=== PATIENT | male | born 1960 ===

== ENCOUNTER 2018-04-07 07:40 | Observation (INO) | payer OTHER ==
--- NOTE | 2018-04-07 08:00 | C.PDOC ---
History Of Present Illness 58 y/o male pt with hx of stents and HTN brought to the ER by EMS c/o persistent dizziness that started last night. Associated sx includes double vision. Pt reports it started at 10 pm last night, pt got up and fell and then went back to bed. Pt then woke up with dizziness still which prompted him to visit the ER. Pt denies chest pain, SOB, headache, nausea, vomiting, weakness, numbness, fever and chills. On arrival to ED, patient is unable to ambulate. Code stroke was called upon pt arrival. Time Seen by Provider: 04/07/18 07:42 Chief Complaint (Nursing): Dizziness/Lightheaded History Per: Patient History/Exam Limitations: no limitations Onset/Duration Of Symptoms: Days (x1) Current Symptoms Are (Timing): Still Present Activity At Onset Of Symptoms: Had Just Stood up Past Medical History Reviewed: Historical Data, Nursing Documentation, Vital Signs - Medical History PMH: HTN Family History: States: No Known Family Hx - Social History Hx Alcohol Use: No Hx Substance Use: No - Immunization History Hx Tetanus Toxoid Vaccination: No Hx Influenza Vaccination: No Hx Pneumococcal Vaccination: No Review Of Systems Constitutional: Negative for: Fever, Chills Eyes: Positive for: Other (double vision ) Cardiovascular: Negative for: Chest Pain Respiratory: Negative for: Shortness of Breath Gastrointestinal: Negative for: Nausea, Vomiting Genitourinary: Negative for: Dysuria Musculoskeletal: Negative for: Neck Pain Skin: Negative for: Rash Neurological: Positive for: Dizziness. Negative for: Weakness, Numbness, Headache Psych: Negative for: Anxiety Physical Exam - Physical Exam Appears: Well, Non-toxic, No Acute Distress Skin: Warm, Dry Head: Atraumatic, Normacephalic Eye(s): bilateral: Normal Inspection, PERRL, EOMI Neck: Normal ROM, Supple Chest: Symmetrical, No Deformity Cardiovascular: Rhythm Regular Respiratory: Normal Breath Sounds Gastrointestinal/Abdominal: Soft, No Tenderness Back: No CVA Tenderness Extremity: Normal ROM (x4), No Tenderness, No Pedal Edema, No Calf Tenderness, Capillary Refill (<2 sec), No Deformity, No Swelling Neurological/Psych: Oriented x3, Normal Speech, Normal Cognition, Normal Motor, Normal Sensation Gait: Unsteady ED Course And Treatment - Laboratory Results Result Diagrams: 04/07/18 07:57 04/07/18 07:57 NIHSS Stroke Scale 2 - Date/Time Evaluation Performed Date Performed: 04/07/18 Time Performed: 08:03 When Was NIHSS Performed: Baseline - How Severe is the Stroke Level of Consciousness: 0=Alert LOC to Questions: 0=Both comments correct LOC to commands: 0=Obeys both correctly Best Gaze: 0=Normal Visual: 0=No visual loss Facial: 0=Normal Motor Arm - Left: 0=No drift Motor Arm - Right: 0=No drift Motor Leg - Left: 0=No drift Motor Leg - Right: 0=No drift Limb Ataxia: 1=Present Upper or Lower Sensory: 0=Normal Best Language: 0=No aphasia Dysarthia: 0=Normal articulation Extinction & Inattention (Neglect): 0=Normal, no object Score: 1 rTPA Inclusion/Exclusion - Refusal of Treatment Patient Refused Treatment: No - Inclusion Criteria for Altepase Patient is 18 years or Older: No The Clinical Diagnosis of Ischemic Stroke That is Causing a Potentially Disabling Neurological Deficit: Yes Time of Onset is Well Established to be Less Than 270 Minute Before Treatment Would Begin: No Risk/Benefit Discussed With Patient/Family Member Present: No Medical Decision Making Medical Decision Making: Impression: Dizziness and unsteady gait Plans: -- chem labs -- blood work -- EKG -- CXR -- CT Head Chest XR results: Accession No. : [id number] Patient Name / ID : BRIGIDO LIM / [id number] Exam Date : 04/07/2018 08:11:58 ( Approved ) Study Comment : Sex / Age : M / 58Y Creator : patti forrester Dictator : Rebeca Tabares MD Provider Relations Specialist : Hearing Therapy Director : Rebeca Tabares MD Approver2 : Report Date : 04/07/2018 08:14:30 My Comment : Date of service: 04/07/2018 HISTORY: Code Stroke COMPARISON: No prior. FINDINGS: LUNGS: The lungs are well inflated and clear. PLEURA: No pleural effusions or pneumothorax. CARDIOVASCULAR: The heart is normal in size. No aortic atherosclerotic calcifications present. OSSEOUS STRUCTURES: Within normal limits for the patient's age. VISUALIZED UPPER ABDOMEN: Normal. OTHER FINDINGS: None. IMPRESSION: No active pulmonary disease. Head CT results: Accession No. : [id number] Patient Name / ID : BRIGIDO LIM / [id number] Exam Date : 04/07/2018 07:54:42 ( Approved ) Study Comment : Sex / Age : M / 58Y Creator : Andres Sánchez MD Dictator : Andres Sánchez MD Provider Relations Specialist : Hearing Therapy Director : Andres Sánchez MD Approver2 : Report Date : 04/07/2018 08:09:55 My Comment : Date of service: 04/07/2018 PROCEDURE: CT HEAD WITHOUT CONTRAST. HISTORY: Code Stroke COMPARISON: None available. TECHNIQUE: Axial computed tomography images were obtained through the head/brain without intravenous contrast. Radiation dose: Total exam DLP = 1114.66 mGy-cm. This CT exam was performed using one or more of the following dose reduction techniques: Automated exposure control, adjustment of the mA and/or kV according to patient size, and/or use of iterative reconstruction technique. FINDINGS: HEMORRHAGE: No intracranial hemorrhage. BRAIN: No mass effect or edema. Scattered focal lucencies in the subcortical and periventricular white matter for example in the left external capsule suggestive for mild chronic microvascular ischemic change. Left basal ganglia lacunar infarct. VENTRICLES: Unremarkable. No hydrocephalus. CALVARIUM: Unremarkable. PARANASAL SINUSES: Unremarkable as visualized. No significant inflammatory changes. MASTOID AIR CELLS: Unremarkable as visualized. No inflammatory changes. OTHER FINDINGS: Intracranial arterial calcifications. IMPRESSION: No acute intracranial hemorrhage. Chronic microvascular ischemic changes. Left basal ganglia lacunar infarct. If there is persistent concern for acute ischemic change, further evaluation with diffusion-weighted MRI may be helpful. These findings were relayed to Dr. Katsetsos at 8:03 a.m. on 04/07/2018. Neck/Head CTA results: Accession No. : [id number] Patient Name / ID : BRIGIDO LIM / [id number] Exam Date : 04/07/2018 08:20:47 ( Approved ) Study Comment : Sex / Age : M / 58Y Creator : Rebeca Tabares MD Dictator : Rebeca Tabares MD Provider Relations Specialist : Hearing Therapy Director : Rebeca Tabares MD Approver2 : Report Date : 04/07/2018 08:43:34 My Comment : Date of service: 04/07/2018 PROCEDURE: CTA HEAD AND NECK WITH CONTRAST HISTORY: dizziness COMPARISON: None available. TECHNIQUE: Initial noncontrast head CT was performed. Subsequently, CT angiogram of the head and neck were performed after the intravenous administration of 80 mL of Omnipaque 350. Contiguous 1.5mm thick images were obtained in the axial plane of the neck. 2-D coronal and sagittal MPR images were obtained. Imaging postprocessing was performed with 3-D images also obtained. A delayed contrast head CT was also obtained. This CT exam was performed using one or more of the following dose reduction techniques: Automated exposure control, adjustment of the mA and/or kV according to patient size, and/or use of iterative reconstruction technique. Contrast dose: 100 mL Visipaque 320 Radiation dose: Total exam DLP = 668.31 mGy-cm. FINDINGS: HEAD: Right: The intracranial internal carotid artery, and anterior and middle cerebral arteries are widely patent. Left: The intracranial internal carotid artery, and anterior and middle cerebral arteries are widely patent. Posterior circulation: The visualized intracranial vertebral arteries, basilar artery and posterior cerebral arteries are widely patent. There is origin of bilateral posterior cerebral arteries, an anatomic variant. There is no endoluminal filling defect to suggest thrombus. There is no intracranial saccular aneurysm. NECK: There is a three vessel aortic arch. There is no stenosis at the origins of the great vessels at the level of the aortic arch. No atherosclerotic calcification or mural plaque present. Right Carotid: On the right, the common carotid, internal carotid and external carotid arteries are widely patent. There is no hemodynamically significant stenosis in the internal carotid artery by NASCET criteria. Left Carotid: On the left, the common carotid, internal carotid and external carotid arteries are widely patent. There is no hemodynamically significant stenosis in the internal carotid artery by NASCET criteria. The vertebral arteries are widely patent. The left vertebral artery is hypoplastic, an anatomic variant. The visualized soft tissues of the neck are normal. The visualized brain and cervical spine are within normal limits. The lung apices are clear. IMPRESSION: 1. No evidence of endoluminal thrombus,occlusion or definite significant stenosis in the intracranial arteries. 2. No evidence of hemodynamically significant stenosis in the internal carotid arteries. 3. Patent bilateral vertebral arteries. 9:41AM EKG shows sinus bradycardia at 57bpm with LVH. Labs grossly normal. Symptoms resolved and now ambulating around the ED. Due to risk factors and severe presentation, will observe with MRI and neuro eval for tia vs posterior fossa cva. Scheduled for heart monitor today for palpitations. 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 Dumont Disposition - Disposition Disposition: HOSPITALIZED Disposition Time: 09:42 Condition: FAIR - Clinical Impression Clinical Impression: Dizziness, TIA (transient ischemic attack) - Scribe Statement The provider has reviewed the documentation as recorded by the Johnny [place] Do Provider Attestation: All medical record entries made by the Annamarieibrossi were at my direction and personally dictated by me. I have reviewed the chart and agree that the record accurately reflects my personal performance of the history, physical exam, medical decision making, and the department course for this patient. I have also personally directed, reviewed, and agree with the discharge instructions and disposition.
[2018-04-07 08:01] VITALS: BMI 26.6
[2018-04-07 08:03] LABS: BASO # 0.1 K/uL (0.0-0.2); BASO % 0.9 % (0.0-2.0); EOS # 0.2 K/uL (0.0-0.7); HEMOGLOBIN 15.6 g/dL (12.0-18.0); LYMPH # 2.6 K/uL (1.0-4.3); LYMPH % 32.4 % (20.0-40.0); MEAN CELL VOLUME 90.8 fL (80.0-94.0); MEAN CORPUSCULAR HEMOGLOBIN 31.4 pg (27.0-31.0); MEAN CORPUSCULAR HGB CONC 34.5 g/dL (33.0-37.0); MEAN PLATELET VOLUME 8.5 fL (7.2-11.7); MONO # 0.5 K/uL (0.0-0.8); MONO % 6.4 % (0.0-10.0); NEUT # 4.7 K/uL (1.8-7.0); NEUT % 58.3 % (50.0-75.0); RBC 4.96 Mil/uL (4.40-5.90); RED CELL DISTRIBUTION WIDTH 13.3 % (11.5-14.5); WHITE BLOOD COUNT 8.1 K/uL (4.8-10.8)
[2018-04-07 08:11] LABS: PROTHROMBIN TIME 11.3 SECONDS (9.7-12.2)
--- NOTE | 2018-04-07 08:13 | CT ---
Date of service: 04/07/2018 PROCEDURE: CT HEAD WITHOUT CONTRAST. HISTORY: Code Stroke COMPARISON: None available. TECHNIQUE: Axial computed tomography images were obtained through the head/brain without intravenous contrast. Radiation dose: Total exam DLP = 1114.66 mGy-cm. This CT exam was performed using one or more of the following dose reduction techniques: Automated exposure control, adjustment of the mA and/or kV according to patient size, and/or use of iterative reconstruction technique. FINDINGS: HEMORRHAGE: No intracranial hemorrhage. BRAIN: No mass effect or edema. Scattered focal lucencies in the subcortical and periventricular white matter for example in the left external capsule suggestive for mild chronic microvascular ischemic change. Left basal ganglia lacunar infarct. VENTRICLES: Unremarkable. No hydrocephalus. CALVARIUM: Unremarkable. PARANASAL SINUSES: Unremarkable as visualized. No significant inflammatory changes. MASTOID AIR CELLS: Unremarkable as visualized. No inflammatory changes. OTHER FINDINGS: Intracranial arterial calcifications. IMPRESSION: No acute intracranial hemorrhage. Chronic microvascular ischemic changes. Left basal ganglia lacunar infarct. If there is persistent concern for acute ischemic change, further evaluation with diffusion-weighted MRI may be helpful. These findings were relayed to Dr. Macedo at 8:03 a.m. on 04/07/2018.
[2018-04-07 08:16] LABS: ALB/GLOB RATIO 1.7 (1.0-2.1); ALBUMIN 4.5 g/dL (3.5-5.0); ALT/SGPT 69 U/L (21-72); AST/SGOT 37 U/L (17-59); BLOOD UREA NITROGEN 18 mg/dL (9-20); CALCIUM 9.4 mg/dl (8.6-10.4); GFR NON-AFRICAN AMERICAN > 60; HDL CHOLESTEROL 40 mg/dL (30-70)
[2018-04-07] MEDS ORDERED: Iodixanol 320 MG/ML 200 ML BOTTLE IV ONE (08:16)
[2018-04-07 08:28] LABS: LDL CHOLESTEROL 108 mg/dL (0-129)
--- NOTE | 2018-04-07 08:33 | RAD ---
Date of service: 04/07/2018 HISTORY: Code Stroke COMPARISON: No prior. FINDINGS: LUNGS: The lungs are well inflated and clear. PLEURA: No pleural effusions or pneumothorax. CARDIOVASCULAR: The heart is normal in size. No aortic atherosclerotic calcifications present. OSSEOUS STRUCTURES: Within normal limits for the patient's age. VISUALIZED UPPER ABDOMEN: Normal. OTHER FINDINGS: None. IMPRESSION: No active pulmonary disease.
--- NOTE | 2018-04-07 08:47 | CT ---
Date of service: 04/07/2018 PROCEDURE: CTA HEAD AND NECK WITH CONTRAST HISTORY: dizziness COMPARISON: None available. TECHNIQUE: Initial noncontrast head CT was performed. Subsequently, CT angiogram of the head and neck were performed after the intravenous administration of 80 mL of Omnipaque 350. Contiguous 1.5mm thick images were obtained in the axial plane of the neck. 2-D coronal and sagittal MPR images were obtained. Imaging postprocessing was performed with 3-D images also obtained. A delayed contrast head CT was also obtained. This CT exam was performed using one or more of the following dose reduction techniques: Automated exposure control, adjustment of the mA and/or kV according to patient size, and/or use of iterative reconstruction technique. Contrast dose: 100 mL Visipaque 320 Radiation dose: Total exam DLP = 668.31 mGy-cm. FINDINGS: HEAD: Right: The intracranial internal carotid artery, and anterior and middle cerebral arteries are widely patent. Left: The intracranial internal carotid artery, and anterior and middle cerebral arteries are widely patent. Posterior circulation: The visualized intracranial vertebral arteries, basilar artery and posterior cerebral arteries are widely patent. There is origin of bilateral posterior cerebral arteries, an anatomic variant. There is no endoluminal filling defect to suggest thrombus. There is no intracranial saccular aneurysm. NECK: There is a three vessel aortic arch. There is no stenosis at the origins of the great vessels at the level of the aortic arch. No atherosclerotic calcification or mural plaque present. Right Carotid: On the right, the common carotid, internal carotid and external carotid arteries are widely patent. There is no hemodynamically significant stenosis in the internal carotid artery by NASCET criteria. Left Carotid: On the left, the common carotid, internal carotid and external carotid arteries are widely patent. There is no hemodynamically significant stenosis in the internal carotid artery by NASCET criteria. The vertebral arteries are widely patent. The left vertebral artery is hypoplastic, an anatomic variant. The visualized soft tissues of the neck are normal. The visualized brain and cervical spine are within normal limits. The lung apices are clear. IMPRESSION: 1. No evidence of endoluminal thrombus,occlusion or definite significant stenosis in the intracranial arteries. 2. No evidence of hemodynamically significant stenosis in the internal carotid arteries. 3. Patent bilateral vertebral arteries.
--- NOTE | 2018-04-07 11:36 | CP.PCM.CON ---
History of Present Illness - History of Present Illness History of Present Illness: Vascular Neurology Consultation Note (Stroke Team): Consult requested by Vi Romero Mr. Norman is a 58-year-old man with a past medical history of CAD s/p 4 stents, managed by Dr. Dumont, who developed dizziness, light-headedness, diplopia and when he went to stand up last night he fell back. For the past month he has been having palpitations, some chest pain and a sensation up the back of his neck. He presented to the ED this morning with continued symptoms. CT scan of the head did not show any acute findings, CTA of the head/neck did not show any LVO. He was outside the time window for IV tPA. MRI of the brain is consistent with a right thalamic lacunar acute ischemic stroke. His symptoms have essentially resolved. Review of Systems - Constitutional Constitutional: As Per HPI - EENT Eyes: absent: As Per HPI, Blind Spots, Blurred Vision, Change in Vision, Decreased Night Vision, Diplopia, Discharge, Dry Eye, Exophthalmos, Floaters, Irritation, Itchy Eyes, Loss of Peripheral Vision, Pain, Photophobia, Requires Corrective Lenses, Sees Flashes, Spots in Vision, Tunnel Vision, Other Visual Disturbances, Loss of Vision, Other Ears: absent: As Per HPI, Decreased Hearing, Ear Discharge, Ear Pain, Tinnitus, Abnormal Hearing, Disequilibrium, Dizziness, Other Nose/Mouth/Throat: absent: As Per HPI, Epistaxis, Nasal Congestion, Nasal Discharge, Nasal Obstruction, Nasal Trauma, Nose Pain, Post Nasal Drip, Sinus Pain, Sinus Pressure, Bleeding Gums, Change in Voice, Dental Pain, Dry Mouth, Dysphagia, Halitosis, Hoarsness, Lip Swelling, Mouth Lesions, Mouth Pain, Odynophagia, Sore Throat, Throat Swelling, Tongue Swelling, Facial Pain, Neck Pain, Neck Mass, Other - Cardiovascular Cardiovascular: absent: As Per HPI, Acrocyanosis, Chest Pain, Chest Pain at Rest, Chest Pain with Activity, Claudication, Diaphoresis, Dyspnea, Dyspnea on Exertion, Edema, Irregular Heart Rhythm, Pain Radiating to Arm/Neck/Jaw, Leg Edema, Leg Ulcers, Lightheadedness, Orthopnea, Palpitations, Paroxysmal Nocturnal Dyspnea, Pedal Edema, Radiating Pain, Rapid Heart Rate, Slow Heart Rate, Syncope, Other - Respiratory Respiratory: absent: As Per HPI, Cough, Dyspnea, Hemoptysis, Dyspnea on Exertion, Wheezing, Snoring, Stridor, Pain on Inspiration, Chest Congestion, Excessive Mucous Production, Change in Mucous Color, Pain with Coughing, Other - Gastrointestinal Gastrointestinal: absent: As Per HPI, Abdominal Pain, Belching, Bloating, Change in Bowel Habits, Change in Stool Character, Coffee Ground Emesis, Constipation, Cramping, Diarrhea, Dyspepsia, Dysphagia, Early Satiety, Excessive Flatus, Fecal Incontinence, Heartburn, Hematemesis, Hematochezia, Loose Stools, Melena, Nausea, Odynophagia, Temesmus, Vomiting, Other - Genitourinary Genitourinary: absent: As Per HPI, Change in Urinary Stream, Difficulty Urinating, Dysuria, Flank Pain, Hematuria, Pyuria, Nocturia, Urinary Incontinence, Urinary Frequency, Urinary Hesitance, Urinary Urgency, Voiding Freq/Small Amts, Freq UTI, Hx Renal/Bladder Calculi, Hx /Renal Surgery, Bladder Distension, Other - Musculoskeletal Musculoskeletal: absent: As Per HPI, Abnormal Gait, Arthralgias, Atrophy, Back Pain, Deformity, Joint Swelling, Limited Range of Motion, Loss of Height, Muscle Cramps, Muscle Weakness, Myalgias, Neck Pain, Numbness, Radiating Pain into Limb, Stiffness, Tingling, Other - Integumentary Integumentary: absent: As Per HPI, Acne, Alopecia, Bleeding Lesions, Change in Hair, Change in Nails, Change in Pigmentation, Changing Lesions, Dry Skin, Erythema, Furuncle, Hirsutism, Lesions, New Lesions, Non-Healing Lesions, Photosensitivity, Pruritus, Rash, Skin Pain, Skin Ulcer, Sores, Striae, Swelling, Unusual Bruising, Wounds, Jaundice, Other - Neurological Neurological: As Per HPI - Psychiatric Psychiatric: absent: As Per HPI, Abnormal Sleep Pattern, Anhedonia, Anxiety, Auditory Hallucinations, Behavioral Changes, Change in Appetite, Change in Libido, Confusion, Depression, Difficulty Concentrating, Hallucinations, Homicidal Ideation, Hopelessness, Irritability, Memory Loss, Mood Swings, Panic Attacks, Paranoia, Suicidal Ideation, Visual Hallucinations, Tactile Hallucinations, Other - Endocrine Endocrine: absent: As Per HPI, Change in Body Appearance, Change in Libido, Cold Intolorance, Deepening of Voice, Excessive Sweating, Fatigue, Flushing, Heat Intolorance, Increase in Ring/Shoe/Hat Size, Palpitations, Polydipsia, Polyphagia, Polyuria, Other - Hematologic/Lymphatic Hematologic: absent: As Per HPI, Easy Bleeding, Easy Bruising, Lymphadenopathy, Other Past Patient History - Infectious Disease Hx of Infectious Diseases: None - Past Social History Smoking Status: Never Smoked - CARDIAC Hx Hypertension: Yes - PSYCHIATRIC Hx Substance Use: No Meds Allergies/Adverse Reactions: Allergies Allergy/AdvReac Type Severity Reaction Status Date / Time No Known Allergies Allergy Verified 04/07/18 07:47 Physical Exam - Constitutional Appears: Well - Head Exam Head Exam: ATRAUMATIC, NORMAL INSPECTION, NORMOCEPHALIC - Eye Exam Eye Exam: EOMI, Normal appearance, PERRL Pupil Exam: NORMAL ACCOMODATION, PERRL - ENT Exam ENT Exam: Mucous Membranes Moist, Normal Exam - Neck Exam Neck exam: Positive for: Normal Inspection - Respiratory Exam Respiratory Exam: Clear to Auscultation Bilateral, NORMAL BREATHING PATTERN - Cardiovascular Exam Cardiovascular Exam: REGULAR RHYTHM, +S1, +S2 - GI/Abdominal Exam GI & Abdominal Exam: Normal Bowel Sounds, Soft. absent: Tenderness - Extremities Exam Extremities exam: Positive for: normal inspection - Back Exam Back exam: NORMAL INSPECTION - Neurological Exam Neurological exam: Alert, CN II-XII Intact, Normal Gait, Oriented x3, Reflexes Normal Additional comments: NIHSS= 0 - Psychiatric Exam Psychiatric exam: Normal Affect, Normal Mood - Skin Skin Exam: Dry, Intact, Normal Color, Warm Results - Vital Signs Recent Vital Signs: Last Vital Signs Temp Pulse 53 L 04/07/18 09:55 Resp 17 04/07/18 09:55 BP 120/75 04/07/18 09:55 Pulse Ox 97 04/07/18 09:55 - Labs Result Diagrams: 04/07/18 07:57 04/07/18 07:57 Labs: Laboratory Results - last 24 hr 04/07/18 04/07/18 04/07/18 07:49 07:57 07:57 WBC 8.1 RBC 4.96 Hgb 15.6 Hct 45.1 MCV 90.8 MCH 31.4 H MCHC 34.5 RDW 13.3 Plt Count 228 MPV 8.5 Neut % (Auto) 58.3 Lymph % (Auto) 32.4 [place] % (Auto) 6.4 Eos % (Auto) 2.0 Baso % (Auto) 0.9 Neut # (Auto) 4.7 Lymph # (Auto) 2.6 [place] # (Auto) 0.5 Eos # (Auto) 0.2 Baso # (Auto) 0.1 PT 11.3 INR 1.0 APTT 30 Sodium Potassium Chloride Carbon Dioxide Anion Gap BUN Creatinine Est GFR ( Amer) Est GFR (Non-Af Amer) POC Glucose (mg/dL) 130 H Random Glucose Hemoglobin A1c Calcium Total Bilirubin AST ALT Alkaline Phosphatase Troponin I Total Protein Albumin Globulin Albumin/Globulin Ratio Triglycerides Cholesterol LDL Cholesterol Direct HDL Cholesterol Blood Type Antibody Screen 04/07/18 04/07/18 04/07/18 07:57 07:57 07:57 WBC RBC Hgb Hct MCV MCH MCHC RDW Plt Count MPV Neut % (Auto) Lymph % (Auto) [place] % (Auto) Eos % (Auto) Baso % (Auto) Neut # (Auto) Lymph # (Auto) [place] # (Auto) Eos # (Auto) Baso # (Auto) PT INR APTT Sodium 138 Potassium 4.0 Chloride 100 Carbon Dioxide 30 Anion Gap 12 BUN 18 Creatinine 1.0 Est GFR ( Amer) > 60 Est GFR (Non-Af Amer) > 60 POC Glucose (mg/dL) Random Glucose 126 H Hemoglobin A1c 5.9 Calcium 9.4 Total Bilirubin 0.9 AST 37 ALT 69 Alkaline Phosphatase 55 Troponin I 0.0220 Total Protein 7.2 Albumin 4.5 Globulin 2.7 Albumin/Globulin Ratio 1.7 Triglycerides 125 Cholesterol 165 LDL Cholesterol Direct 108 HDL Cholesterol 40 Blood Type B POSITIVE Antibody Screen Negative Assessment & Plan (1) Ischemic stroke Assessment and Plan: This may be due to small vessel diseaes, however, the patient was already on aspirin and had the new strokes. History of palpitations is concerning for possible paroxysmal atrial fibrillation and cardio-embolic stroke. Follow-up by Dr. Ybarra. I recommend the followin. Telemetry 2. Aspirin 81 mg daily and Plavix 75 mg daily (continue for 21 days, then continue only plavix indefinitely); unless, atrial fibrillation is discovered during telemetry or cardiac monitoring, at which point, Eliquis is recommended. 3. Echocardiogram 4. Fluids with NS at 100 mL/hr 5. Permissive HTN for the next 24 hours 6. PT/OT eval and treatment. 7. Case management consult 8. Check lipid panel, HbA1c, B12, folate, TSH, vitamin D, homocysteine level 9. Primary team to manage risk factors 10. Lipitor 40 mg daily Thank you for this consultation. Status: Acute
--- NOTE | 2018-04-07 11:41 | MRI ---
Date of service: 04/07/2018 PROCEDURE: MRI BRAIN WITHOUT CONTRAST HISTORY: Dizziness COMPARISON: Noncontrast head CT from 04/07/2018. TECHNIQUE: Multiplanar, multisequence MR images of the brain were obtained without intravenous contrast enhancement. FINDINGS: HEMORRHAGE: None DWI: There is a small area of restricted diffusion in the right periaqueductal li matter. BRAIN PARENCHYMA: There is T2/FLAIR hyperintense signal corresponding to the area of restricted diffusion in the right periaqueductal li matter. There are mild chronic microangiopathic changes. There is no mass, mass effect or abnormal extra-axial fluid collection. There is no territorial infarction. The midline sagittal structures are normal. VENTRICLES: There is mild age-related global parenchymal volume loss and proportionate enlargement of the ventricles and cortical sulci. CRANIUM: There is normal bone marrow signal pattern. ORBITS: Grossly unremarkable. PARANASAL SINUSES/MASTOIDS: Predominantly clear. VASCULAR SYSTEM: There are normal signal voids in the larger intracranial arteries. OTHER FINDINGS: None. IMPRESSION: Suspect small late acute/subacute infarction in the right periaqueductal li matter. Mild chronic microangiopathic changes and mild age-related global parenchymal volume loss. Important findings were discussed with Dr. Tate Garland on 04/07/2018 at 11:35 a.m.
[2018-04-07] MEDS ORDERED: Enoxaparin 40 mg Syringe SC SCH (12:15)
--- NOTE | 2018-04-07 12:31 | CP.PCM.HP ---
Past Patient History - Infectious Disease Hx of Infectious Diseases: None - Past Social History Smoking Status: Never Smoked - CARDIAC Hx Hypertension: Yes - PSYCHIATRIC Hx Substance Use: No Meds Home Medications: Home Medication List Medication Instructions Recorded Confirmed Type RX: Clopidogrel [Plavix] 75 mg PO STAT #30 tab 04/10/18 Rx RX: Losartan [Cozaar] 25 mg PO DAILY #30 tab 04/10/18 Rx Allergies/Adverse Reactions: Allergies Allergy/AdvReac Type Severity Reaction Status Date / Time No Known Allergies Allergy Verified 04/07/18 07:47 Physical Exam - Constitutional Appears: Well - Head Exam Head Exam: ATRAUMATIC, NORMAL INSPECTION, NORMOCEPHALIC - Eye Exam Eye Exam: EOMI, Normal appearance, PERRL Pupil Exam: NORMAL ACCOMODATION, PERRL - ENT Exam ENT Exam: Mucous Membranes Moist, Normal Exam - Neck Exam Neck exam: Positive for: Normal Inspection - Respiratory Exam Respiratory Exam: Decreased Breath Sounds - Cardiovascular Exam Cardiovascular Exam: +S1, +S2 - GI/Abdominal Exam GI & Abdominal Exam: Diminished Bowel Sounds, Soft - Rectal Exam Rectal Exam: Deferred Results - Vital Signs Recent Vital Signs: Last Vital Signs Temp Pulse 53 L 04/07/18 09:55 Resp 17 04/07/18 09:55 BP 120/75 04/07/18 09:55 Pulse Ox 97 04/07/18 09:55 - Labs Result Diagrams: 04/07/18 07:57 04/07/18 07:57 Labs: Laboratory Results - last 24 hr 04/07/18 04/07/18 04/07/18 07:49 07:57 07:57 WBC 8.1 RBC 4.96 Hgb 15.6 Hct 45.1 MCV 90.8 MCH 31.4 H MCHC 34.5 RDW 13.3 Plt Count 228 MPV 8.5 Neut % (Auto) 58.3 Lymph % (Auto) 32.4 Lynn % (Auto) 6.4 Eos % (Auto) 2.0 Baso % (Auto) 0.9 Neut # (Auto) 4.7 Lymph # (Auto) 2.6 [place] # (Auto) 0.5 Eos # (Auto) 0.2 Baso # (Auto) 0.1 PT 11.3 INR 1.0 APTT 30 Sodium Potassium Chloride Carbon Dioxide Anion Gap BUN Creatinine Est GFR ( Amer) Est GFR (Non-Af Amer) POC Glucose (mg/dL) 130 H Random Glucose Hemoglobin A1c Calcium Total Bilirubin AST ALT Alkaline Phosphatase Troponin I Total Protein Albumin Globulin Albumin/Globulin Ratio Triglycerides Cholesterol LDL Cholesterol Direct HDL Cholesterol Blood Type Antibody Screen 04/07/18 04/07/18 04/07/18 07:57 07:57 07:57 WBC RBC Hgb Hct MCV MCH MCHC RDW Plt Count MPV Neut % (Auto) Lymph % (Auto) [place] % (Auto) Eos % (Auto) Baso % (Auto) Neut # (Auto) Lymph # (Auto) [place] # (Auto) Eos # (Auto) Baso # (Auto) PT INR APTT Sodium 138 Potassium 4.0 Chloride 100 Carbon Dioxide 30 Anion Gap 12 BUN 18 Creatinine 1.0 Est GFR ( Amer) > 60 Est GFR (Non-Af Amer) > 60 POC Glucose (mg/dL) Random Glucose 126 H Hemoglobin A1c 5.9 Calcium 9.4 Total Bilirubin 0.9 AST 37 ALT 69 Alkaline Phosphatase 55 Troponin I 0.0220 Total Protein 7.2 Albumin 4.5 Globulin 2.7 Albumin/Globulin Ratio 1.7 Triglycerides 125 Cholesterol 165 LDL Cholesterol Direct 108 HDL Cholesterol 40 Blood Type B POSITIVE Antibody Screen Negative
--- NOTE | 2018-04-07 15:43 | PCM.RRT ---
MEDICAL PSYCHOTHERAPIST Nurses Assessment - Situation Date: 04/07/18 Time MEDICAL PSYCHOTHERAPIST was called: 15:28 MEDICAL PSYCHOTHERAPIST Responder Arrival Time:: 15:30 MEDICAL PSYCHOTHERAPIST Location:: 6T Med/Surg MEDICAL PSYCHOTHERAPIST Called By: Physician I.Reason for MEDICAL PSYCHOTHERAPIST - A) Acute Change in Patient: Subjective: Rapid was called at 1528 after patient complained of headache. Physician was concerned for hemorrhagic conversion since patient was a code stroke. Patient states he has been experiencing a headache since early this morning. He states he does not have any blurry vision at this time. - Neurological Status (Select all that apply): Alert, Responsive, Oriented, Verbal, Follows Commands - Respiratory Oxygen Delivery Method: Room Air - Constitutional Appears: Well, No Acute Distress - Head Head Exam: ATRAUMATIC, NORMOCEPHALIC - Eyes Eye Exam: EOMI, PERRL - Respiratory Exam Respiratory Exam: Clear to Ausculation Bilateral, NORMAL BREATHING PATTERN - Cardiovascular Exam Cardiovascular Exam: REGULAR RHYTHM, +S1, +S2. absent: Gallop, Rubs, Murmur - GI/Abdominal Exam GI & Abdominal Exam: Soft, Normal Bowel Sounds. absent: Tenderness - Neurological Exam Neurological Exam: Alert, Awake, CN II-XII Intact, Oriented x3 Additional exam: Strength 5/5 in upper and lower extremities Sensation equal in upper and lower extremities. No pronator drift. Good finger to nose - Extremities Exam Extremities Exam: absent: Calf Tenderness, Pedal Edema Plan - Assessment of Findings&Treatment Plan Vitals: Temp 97.5 BP 127/81 HR 62 O2 sat 97% on RA CT head without contrast: Asymmetric low density lesion in the right medial thalamus consistent with known subacute infarction. No evidence for hemorrhagic conversion. Case discussed with Dr. Kyung Rayo, PGY1
--- NOTE | 2018-04-07 16:26 | CT ---
Date of service: 04/07/2018 PROCEDURE: CT HEAD WITHOUT CONTRAST. HISTORY: recent cva r/o conversion COMPARISON: Noncontrast head CT MRI brain without contrast from 04/07/2018 TECHNIQUE: Axial computed tomography images were obtained through the head/brain without intravenous contrast. Radiation dose: Total exam DLP = 1129.83 mGy-cm. This CT exam was performed using one or more of the following dose reduction techniques: Automated exposure control, adjustment of the mA and/or kV according to patient size, and/or use of iterative reconstruction technique. FINDINGS: HEMORRHAGE: No intracranial hemorrhage. BRAIN: There is asymmetric low attenuation in the right medial thalamus. There is no mass, mass effect or abnormal extra-axial fluid collection. There is no territorial infarction. The midline sagittal structures are normal. VENTRICLES: The ventricles are normal in size, shape and configuration. CALVARIUM: There is no calvarial fracture or extracranial soft tissue swelling. PARANASAL SINUSES: Predominantly clear. MASTOID AIR CELLS: Predominantly clear. There cerumen in the left external auditory canal. OTHER FINDINGS: None. IMPRESSION: Asymmetric low density lesion in the right medial thalamus consistent with known subacute infarction. No evidence for hemorrhagic conversion.
[2018-04-07] MEDS: Omega-3-Acid Ethyl Esters 1 GM Cap PO SCH (17:44)
--- NOTE | 2018-04-07 22:37 | CARD ---
APPROVED REPORT Date of service: 04/07/2018 EXAM: Two-dimensional and M-mode echocardiogram with Doppler and color Doppler with bubble. Other Information Quality : GoodRhythm : INDICATION CVA/TIA Dizziness and Vertigo DOUBLE VISION RISK FACTORS Hypertension 2D DIMENSIONS IVSd1.0 (0.7-1.1cm)LVDd4.7 (3.9-5.9cm) PWd0.9 (0.7-1.1cm)LA Smjlai18 (18-58mL) LVDs4.1 (2.5-4.0cm)FS (%) 11.9 % LVEF (%)50.0 (>50%)LVEF (Nelson's)53.24 % IVC0.00 cm M-Mode DIMENSIONS Left Atrium (MM)4.17 (2.5-4.0cm)IVSd1.51 (0.7-1.1cm) Aortic Root3.04 (2.2-3.7cm)LVDd5.91 (4.0-5.6cm) Aortic Cusp Exc.2.15 (1.5-2.0cm)PWd0.78 (0.7-1.1cm) FS (%) 21 %LVDs4.68 (2.0-3.8cm) TAPSE18.55 cmLVEF (%)48 (>50%) Mitral Valve MV E Qhawifxn60.2cm/sMV A Binhreli93.3cm/sE/A ratio1.1 TDI Lateral E' Peak V8.03cm/sMedial E' Peak V6.03cm/sE/Lateral E'9.0 E/Medial E'12.0 Tricuspid Valve TR Peak Xprppwrc089kb/sTR Peak Gr.[id number] LEFT VENTRICLE The left ventricle is normal size. There is normal left ventricular wall thickness. Left ventricle systolic function is normal. The Ejection Fraction is 50-55%. There is normal LV segmental wall motion. The left ventricular diastolic function is normal. RIGHT VENTRICLE The right ventricle is normal size. There is normal right ventricular wall thickness. The right ventricular systolic function is normal. ATRIA The left atrium size is normal. The right atrium size is normal. The interatrial septum is intact with no evidence for an atrial septal defect. AORTIC VALVE The aortic valve is normal in structure. No aortic regurgitation is present. There is no aortic valvular stenosis. There is no aortic valvular vegetation. MITRAL VALVE The mitral valve is normal in structure. There is no evidence of mitral valve prolapse. There is no mitral valve stenosis. Mitral regurgitation is mild. TRICUSPID VALVE The tricuspid valve is normal in structure. There is mild tricuspid regurgitation. Right ventricular systolic pressure is estimated at less than 30 mmHg. There is no pulmonary hypertension. PULMONIC VALVE The pulmonic valve is not well visualized. There is no pulmonic valvular regurgitation. GREAT VESSELS The aortic root is normal in size. PERICARDIAL EFFUSION There is no significant pericardial effusion. <Conclusion> Left ventricle systolic function is normal. The Ejection Fraction is 50-55%. No aortic regurgitation is present. Mitral regurgitation is mild. There is mild tricuspid regurgitation. There is no pulmonary hypertension. There is no pulmonic valvular regurgitation.
--- NOTE | 2018-04-08 01:44 | CON ---
DATE: 04/07/2018 CONSULTATION SERVICE: Clinical cardiac electrophysiology. REASON FOR CONSULTATION: Stroke, palpitations. PHYSICIAN REQUESTING CONSULTATION: Bert Aguayo MD PHYSICIAN PERFORMING CONSULTATION: Volodymyr Natarajan MD HISTORY OF PRESENT ILLNESS: Mr. Blaise Norman is a very pleasant 58-year-old male with a history of coronary artery disease and PCI and four stents in the past, normal LV ejection fraction (no history of diabetes or hypertension per se) who presents to [facility] with acute onset of diplopia and gait instability. He was seen in the emergency room and subsequently hospitalized. He was diagnosed with a thalamic stroke, based on his symptoms, there was a suggestion of a larger posterior circulation involvement that had unfortunately minimized to a smaller thalamic area. Currently, the patient says he feels relatively well, but he does have a headache today, which is new from earlier. His symptoms have been improving. He is a male carrier and is very active typically. He denies any previous lightheadedness, dizziness, or syncope. Historically, he does admit to palpitations that occur every few nights. Typically, he says when he is resting in the evening, he will be sitting there and he "feels forceful hear beats." He has not been dizzy with these and has certainly not had any syncope. Since he has been in the hospital, he has not had any of these sensations. On EKG, he has demonstrated normal sinus rhythm with normal atrioventricular conduction. On telemetry, he has been in sinus rhythm entirely, he has had rare PVCs. Again, the patient has not had symptoms while has been in the hospital. There has been no atrial or ventricular arrhythmia per se. He has thus far had an echocardiogram and bubble study which had been unrevealing. He is currently undergoing head CT because of his increasing headache. REVIEW OF SYSTEMS: A comprehensive 10-point review of systems was performed and notable for what was seen above. FAMILY HISTORY: Unremarkable. SOCIAL HISTORY: Unremarkable. PHYSICAL EXAMINATION: VITAL SIGNS: The patient's blood pressure is 120s/80s, heart rate in the 50s, and respiratory rate of 13. GENERAL: The patient is alert, oriented, conversant appropriate. NECK: Supple. PULMONARY: Lungs are clear. CARDIOVASCULAR: Bradycardic, S1 and S2. GASTROINTESTINAL: Abdomen is soft. EXTREMITIES: No edema. SKIN: No rashes. PSYCHIATRIC: Normal affect. His family members are in the room. LABORATORY DATA: Lab hinojosa, the patient's CBC is largely unrevealing with a hemoglobin of 15.6 and platelet count of 228. INR is 1. His creatinine is 1. ASSESSMENT AND PLAN: Mr. Blaise Norman is presenting with an MRI finding of a right thalamic lacunar stroke. After my discussion with Dr. Aguayo from Neurology, it appears that his initial presenting symptoms were indicative of a larger area of vulnerable territory, and he unfortunately objectively demonstrated a small area after his initial symptoms resolved. As such, it appears that there may be some component of an embolic phenomenon, and certainly that is a question for this individual. He is also complaining of intermittent palpitations. He has not had any during his hospitalization. He said his symptoms occur once or twice a week. Certainly, with both of these with his presentation as well as symptoms of palpitations, it is reasonable for us to perform ambulatory monitoring. While I would classically recommend a loop recorder, because he is having symptoms which may or may not be related to his stroke, I suggest that we have to the patient wear a 30-day event recorder. If we are able to capture his symptoms and they do indeed correlate with an arrhythmia (atrial fibrillation, etc.), this will obviate the need for any invasive monitoring. 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 I will set this as an outpatient and obtain this information and/or my electrophysiology department will contact him regarding this. There is no other specific EP intervention this admission. We should evaluate telemetry, as any demonstration of arrhythmia can be dealt with at that time and may change and alter our course. Thank you very much for allowing me to participate in the care of this patient. Volodymyr Natarajan MD
--- NOTE | 2018-04-08 07:14 | CP.PCM.CON ---
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 TERITARY EXAM RIGHT IV CN DYSFUNCTION AND MID CEREBELLAR DYSFUNCTION SMALL VESSEL DISEASE ASA/PLAVIX/STATIN/ARB OCULAR EXCERCISE EVENT MONITER SRBD - NEEDS PSG AN OP Past Patient History - Infectious Disease Hx of Infectious Diseases: None - Past Social History Smoking Status: Never Smoked - CARDIAC Hx Hypertension: Yes - PSYCHIATRIC Hx Substance Use: No Meds Allergies/Adverse Reactions: Allergies Allergy/AdvReac Type Severity Reaction Status Date / Time No Known Allergies Allergy Verified 04/07/18 07:47 - Medications Medications: Current Medications Aspirin (Aspirin) 325 mg PO DAILY [facility] Clopidogrel Bisulfate (Plavix) 75 mg PO DAILY [facility] Last Admin: 04/07/18 13:20 Dose: 75 mg Enoxaparin Sodium (Lovenox) 40 mg SC DAILY [facility] [place] Last Admin: 04/07/18 13:20 Dose: 40 mg Losartan Potassium (Cozaar) 25 mg PO DAILY [facility] [id number] Ethyl Esters (Lovaza) 1 gm PO BID [facility] Last Admin: 04/07/18 17:44 Dose: 1 gm Rosuvastatin Calcium (Crestor) 10 mg PO HS [facility] [place] Last Admin: 04/07/18 21:50 Dose: 10 mg Results - Vital Signs Recent Vital Signs: Last Vital Signs Temp 97.4 F L 04/08/18 04:55 Pulse 55 L 04/08/18 04:55 Resp 20 04/08/18 04:55 BP 112/62 04/08/18 04:55 Pulse Ox 96 04/08/18 04:55 - Labs Result Diagrams: 04/07/18 07:57 04/07/18 07:57 Labs: Laboratory Results - last 24 hr 04/07/18 04/07/18 04/07/18 07:49 07:57 07:57 WBC 8.1 RBC 4.96 Hgb 15.6 Hct 45.1 MCV 90.8 MCH 31.4 H MCHC 34.5 RDW 13.3 Plt Count 228 MPV 8.5 Neut % (Auto) 58.3 Lymph % (Auto) 32.4 [place] % (Auto) 6.4 Eos % (Auto) 2.0 Baso % (Auto) 0.9 Neut # (Auto) 4.7 Lymph # (Auto) 2.6 [place] # (Auto) 0.5 Eos # (Auto) 0.2 Baso # (Auto) 0.1 PT 11.3 INR 1.0 APTT 30 Sodium Potassium Chloride Carbon Dioxide Anion Gap BUN Creatinine Est GFR ( Amer) Est GFR (Non-Af Amer) POC Glucose (mg/dL) 130 H Random Glucose Hemoglobin A1c Calcium Total Bilirubin AST ALT Alkaline Phosphatase Troponin I Total Protein Albumin Globulin Albumin/Globulin Ratio Triglycerides Cholesterol LDL Cholesterol Direct HDL Cholesterol Blood Type Antibody Screen 04/07/18 04/07/18 04/07/18 07:57 07:57 07:57 WBC RBC Hgb Hct MCV MCH MCHC RDW Plt Count MPV Neut % (Auto) Lymph % (Auto) [place] % (Auto) Eos % (Auto) Baso % (Auto) Neut # (Auto) Lymph # (Auto) [place] # (Auto) Eos # (Auto) Baso # (Auto) PT INR APTT Sodium 138 Potassium 4.0 Chloride 100 Carbon Dioxide 30 Anion Gap 12 BUN 18 Creatinine 1.0 Est GFR ( Amer) > 60 Est GFR (Non-Af Amer) > 60 POC Glucose (mg/dL) Random Glucose 126 H Hemoglobin A1c 5.9 Calcium 9.4 Total Bilirubin 0.9 AST 37 ALT 69 Alkaline Phosphatase 55 Troponin I 0.0220 Total Protein 7.2 Albumin 4.5 Globulin 2.7 Albumin/Globulin Ratio 1.7 Triglycerides 125 Cholesterol 165 LDL Cholesterol Direct 108 HDL Cholesterol 40 Blood Type B POSITIVE Antibody Screen Negative 04/07/18 04/07/18 17:01 21:30 WBC RBC Hgb Hct MCV MCH MCHC RDW Plt Count MPV Neut % (Auto) Lymph % (Auto) [place] % (Auto) Eos % (Auto) Baso % (Auto) Neut # (Auto) Lymph # (Auto) [place] # (Auto) Eos # (Auto) Baso # (Auto) PT INR APTT Sodium Potassium Chloride Carbon Dioxide Anion Gap BUN Creatinine Est GFR ( Amer) Est GFR (Non-Af Amer) POC Glucose (mg/dL) 119 H 133 H Random Glucose Hemoglobin A1c Calcium Total Bilirubin AST ALT Alkaline Phosphatase Troponin I Total Protein Albumin Globulin Albumin/Globulin Ratio Triglycerides Cholesterol LDL Cholesterol Direct HDL Cholesterol Blood Type Antibody Screen
--- NOTE | 2018-04-08 07:16 | CP.PCM.CON ---
History of Present Illness - History of Present Illness History of Present Illness: CC: 58 M admitted for blurry vision and CVA. Hx of palpitations Mr. Norman is a 58-year-old man with a past medical history of CAD s/p 4 stents, managed by or for cardiology, who developed dizziness, light-headedness, diplopia and when he went to stand up last night he fell back. For the past month he has been having palpitations, some chest pain and a sensation up the back of his neck. He presented to the ED this morning with continued symptoms. CT scan of the head did not show any acute findings, CTA of the head/neck did not show any LVO. He was outside the time window for IV tPA. MRI of the brain is consistent with a right thalamic lacunar acute ischemic stroke. His symptoms have essentially resolved. Review of Systems - Constitutional Constitutional: As Per HPI - EENT Eyes: absent: As Per HPI, Blind Spots, Blurred Vision, Change in Vision, Decreased Night Vision, Diplopia, Discharge, Dry Eye, Exophthalmos, Floaters, Irritation, Itchy Eyes, Loss of Peripheral Vision, Pain, Photophobia, Requires Corrective Lenses, Sees Flashes, Spots in Vision, Tunnel Vision, Other Visual Disturbances, Loss of Vision, Other Ears: absent: As Per HPI, Decreased Hearing, Ear Discharge, Ear Pain, Tinnitus, Abnormal Hearing, Disequilibrium, Dizziness, Other Nose/Mouth/Throat: absent: As Per HPI, Epistaxis, Nasal Congestion, Nasal Discharge, Nasal Obstruction, Nasal Trauma, Nose Pain, Post Nasal Drip, Sinus Pain, Sinus Pressure, Bleeding Gums, Change in Voice, Dental Pain, Dry Mouth, Dysphagia, Halitosis, Hoarsness, Lip Swelling, Mouth Lesions, Mouth Pain, Odynophagia, Sore Throat, Throat Swelling, Tongue Swelling, Facial Pain, Neck Pain, Neck Mass, Other - Cardiovascular Cardiovascular: absent: As Per HPI, Acrocyanosis, Chest Pain, Chest Pain at Rest, Chest Pain with Activity, Claudication, Diaphoresis, Dyspnea, Dyspnea on Exertion, Edema, Irregular Heart Rhythm, Pain Radiating to Arm/Neck/Jaw, Leg Edema, Leg Ulcers, Lightheadedness, Orthopnea, Palpitations, Paroxysmal Nocturnal Dyspnea, Pedal Edema, Radiating Pain, Rapid Heart Rate, Slow Heart Rate, Syncope, Other - Respiratory Respiratory: absent: As Per HPI, Cough, Dyspnea, Hemoptysis, Dyspnea on Exertion, Wheezing, Snoring, Stridor, Pain on Inspiration, Chest Congestion, Excessive Mucous Production, Change in Mucous Color, Pain with Coughing, Other - Gastrointestinal Gastrointestinal: absent: As Per HPI, Abdominal Pain, Belching, Bloating, Change in Bowel Habits, Change in Stool Character, Coffee Ground Emesis, Constipation, Cramping, Diarrhea, Dyspepsia, Dysphagia, Early Satiety, Excessive Flatus, Fecal Incontinence, Heartburn, Hematemesis, Hematochezia, Loose Stools, Melena, Nausea, Odynophagia, Temesmus, Vomiting, Other - Genitourinary Genitourinary: absent: As Per HPI, Change in Urinary Stream, Difficulty Urinating, Dysuria, Flank Pain, Hematuria, Pyuria, Nocturia, Urinary Incontinence, Urinary Frequency, Urinary Hesitance, Urinary Urgency, Voiding Freq/Small Amts, Freq UTI, Hx Renal/Bladder Calculi, Hx /Renal Surgery, Bladder Distension, Other - Musculoskeletal Musculoskeletal: absent: As Per HPI, Abnormal Gait, Arthralgias, Atrophy, Back Pain, Deformity, Joint Swelling, Limited Range of Motion, Loss of Height, Muscle Cramps, Muscle Weakness, Myalgias, Neck Pain, Numbness, Radiating Pain into Limb, Stiffness, Tingling, Other - Integumentary Integumentary: absent: As Per HPI, Acne, Alopecia, Bleeding Lesions, Change in Hair, Change in Nails, Change in Pigmentation, Changing Lesions, Dry Skin, Erythema, Furuncle, Hirsutism, Lesions, New Lesions, Non-Healing Lesions, Photosensitivity, Pruritus, Rash, Skin Pain, Skin Ulcer, Sores, Striae, Swelling, Unusual Bruising, Wounds, Jaundice, Other - Neurological Neurological: As Per HPI - Psychiatric Psychiatric: absent: As Per HPI, Abnormal Sleep Pattern, Anhedonia, Anxiety, Auditory Hallucinations, Behavioral Changes, Change in Appetite, Change in Libido, Confusion, Depression, Difficulty Concentrating, Hallucinations, Homicidal Ideation, Hopelessness, Irritability, Memory Loss, Mood Swings, Panic Attacks, Paranoia, Suicidal Ideation, Visual Hallucinations, Tactile Hallucinations, Other - Endocrine Endocrine: absent: As Per HPI, Change in Body Appearance, Change in Libido, Cold Intolorance, Deepening of Voice, Excessive Sweating, Fatigue, Flushing, Heat Int olorance, Increase in Ring/Shoe/Hat Size, Palpitations, Polydipsia, Polyphagia, Polyuria, Other - Hematologic/Lymphatic Hematologic: absent: As Per HPI, Easy Bleeding, Easy Bruising, Lymphadenopathy, Other Past Patient History - Infectious Disease Hx of Infectious Diseases: None - Past Social History Smoking Status: Never Smoked - CARDIAC Hx Hypertension: Yes - PSYCHIATRIC Hx Substance Use: No Meds Allergies/Adverse Reactions: Allergies Allergy/AdvReac Type Severity Reaction Status Date / Time No Known Allergies Allergy Verified 04/07/18 07:47 Physical Exam - Constitutional Appears: Well - Head Exam Head Exam: ATRAUMATIC, NORMAL INSPECTION, NORMOCEPHALIC - Eye Exam Eye Exam: EOMI, Normal appearance, PERRL Pupil Exam: NORMAL ACCOMODATION, PERRL - ENT Exam ENT Exam: Mucous Membranes Moist, Normal Exam - Neck Exam Neck exam: Positive for: Normal Inspection - Respiratory Exam Respiratory Exam: Clear to Auscultation Bilateral, NORMAL BREATHING PATTERN - Cardiovascular Exam Cardiovascular Exam: REGULAR RHYTHM, +S1, +S2 - GI/Abdominal Exam GI & Abdominal Exam: Normal Bowel Sounds, Soft. absent: Tenderness - Extremities Exam Extremities exam: Positive for: normal inspection - Back Exam Back exam: NORMAL INSPECTION - Neurological Exam Neurological exam: Alert, CN II-XII Intact, Normal Gait, Oriented x3, Reflexes Normal Additional comments: NIHSS= 0 - Psychiatric Exam Psychiatric exam: Normal Affect, Normal Mood - Skin Skin Exam: Dry, Intact, Normal Color, WarmCC Past Patient History - Infectious Disease Hx of Infectious Diseases: None - Past Social History Smoking Status: Never Smoked - CARDIAC Hx Hypertension: Yes - PSYCHIATRIC Hx Substance Use: No Meds Allergies/Adverse Reactions: Allergies Allergy/AdvReac Type Severity Reaction Status Date / Time No Known Allergies Allergy Verified 04/07/18 07:47 - Medications Medications: Current Medications Aspirin (Aspirin) 81 mg PO DAILY [facility] Clopidogrel Bisulfate (Plavix) 75 mg PO DAILY [facility] Last Admin: 04/07/18 13:20 Dose: 75 mg Enoxaparin Sodium (Lovenox) 40 mg SC DAILY [facility] Last Admin: 04/07/18 13:20 Dose: 40 mg Losartan Potassium (Cozaar) 25 mg PO DAILY [facility] Qzsdd-[id number] Ethyl Esters (Lovaza) 1 gm PO BID [facility] Last Admin: 04/07/18 17:44 Dose: 1 gm Rosuvastatin Calcium (Crestor) 10 mg PO HS [facility] Last Admin: 04/07/18 21:50 Dose: 10 mg Results - Vital Signs Recent Vital Signs: Last Vital Signs Temp 97.4 F L 04/08/18 04:55 Pulse 55 L 04/08/18 04:55 Resp 20 04/08/18 04:55 BP 112/62 04/08/18 04:55 Pulse Ox 96 04/08/18 04:55 - Labs Result Diagrams: 04/07/18 07:57 04/07/18 07:57 Labs: Laboratory Results - last 24 hr 04/07/18 04/07/18 04/07/18 07:49 07:57 07:57 WBC 8.1 RBC 4.96 Hgb 15.6 Hct 45.1 MCV 90.8 MCH 31.4 H MCHC 34.5 RDW 13.3 Plt Count 228 MPV 8.5 Neut % (Auto) 58.3 Lymph % (Auto) 32.4 [place] % (Auto) 6.4 Eos % (Auto) 2.0 Baso % (Auto) 0.9 Neut # (Auto) 4.7 Lymph # (Auto) 2.6 [place] # (Auto) 0.5 Eos # (Auto) 0.2 Baso # (Auto) 0.1 PT 11.3 INR 1.0 APTT 30 Sodium Potassium Chloride Carbon Dioxide Anion Gap BUN Creatinine Est GFR ( Amer) Est GFR (Non-Af Amer) POC Glucose (mg/dL) 130 H Random Glucose Hemoglobin A1c Calcium Total Bilirubin AST ALT Alkaline Phosphatase Troponin I Total Protein Albumin Globulin Albumin/Globulin Ratio Triglycerides Cholesterol LDL Cholesterol Direct HDL Cholesterol Blood Type Antibody Screen 04/07/18 04/07/18 04/07/18 07:57 07:57 07:57 WBC RBC Hgb Hct MCV MCH MCHC RDW Plt Count MPV Neut % (Auto) Lymph % (Auto) T[place] % (Auto) Eos % (Auto) Baso % (Auto) Neut # (Auto) Lymph # (Auto) [place] # (Auto) Eos # (Auto) Baso # (Auto) PT INR APTT Sodium 138 Potassium 4.0 Chloride 100 Carbon Dioxide 30 Anion Gap 12 BUN 18 Creatinine 1.0 Est GFR ( Amer) > 60 Est GFR (Non-Af Amer) > 60 POC Glucose (mg/dL) Random Glucose 126 H Hemoglobin A1c 5.9 Calcium 9.4 Total Bilirubin 0.9 AST 37 ALT 69 Alkaline Phosphatase 55 Troponin I 0.0220 Total Protein 7.2 Albumin 4.5 Globulin 2.7 Albumin/Globulin Ratio 1.7 Triglycerides 125 Cholesterol 165 LDL Cholesterol Direct 108 HDL Cholesterol 40 Blood Type B POSITIVE Antibody Screen Negative 04/07/18 04/07/18 17:01 21:30 WBC RBC Hgb Hct MCV MCH MCHC RDW Plt Count MPV Neut % (Auto) Lymph % (Auto) [place] % (Auto) Eos % (Auto) Baso % (Auto) Neut # (Auto) Lymph # (Auto) [place] # (Auto) Eos # (Auto) Baso # (Auto) PT INR APTT Sodium Potassium Chloride Carbon Dioxide Anion Gap BUN Creatinine Est GFR ( Amer) Est GFR (Non-Af Amer) POC Glucose (mg/dL) 119 H 133 H Random Glucose Hemoglobin A1c Calcium Total Bilirubin AST ALT Alkaline Phosphatase Troponin I Total Protein Albumin Globulin Albumin/Globulin Ratio Triglycerides Cholesterol LDL Cholesterol Direct HDL Cholesterol Blood Type Antibody Screen Assessment & Plan - Assessment and Plan (Free Text) Assessment: 58 Male with ischemic CVA HTN CAD s/p stents ECHO: Bubble study negative Carotids pending Event monitoring as out patient Continue Stroke management Will follow
[2018-04-08] MEDS ORDERED: Home Med 1 UNIT (Atorvastatin [Lipitor] 40 MG) PO SCH (10:00)
[2018-04-08] MEDS: Omega-3-Acid Ethyl Esters 1 GM Cap PO SCH ×2 (10:27→17:48)
--- NOTE | 2018-04-08 10:46 | CON ---
DATE: 04/08/2018 ATTENDING PHYSICIAN: Aldo Romero MD ROOM: 668, bed A. REASON FOR CONSULTATION Double vision, unsteady gait with abnormal MRI. CHIEF COMPLAINT The patient came to the emergency room with history of double vision, waking up with unsteady gait. From neurological point of view, I was called into evaluate him for further management. HISTORY OF PRESENT ILLNESS: Mr. Blaise Norman is a right-handed [place]ian speaking [place] male presenting with history of went to bed at night prior to this admission with double vision while he was watching TV. The symptoms had persisted. He took a shower, symptoms did get better. The patient described that vision is oblique vision on looking to his left than his right side. The patient went to bed. The patient woke up with unsteady gait, actually he fell from the bed the time he woke up. Because of the unsteady gait, he came to the hospital for further evaluation. No headache. No focal weakness. No history of speech impairment associated with this problem. No history of loss of consciousness. No history of involuntary movement associating with this problem as well. 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 The patient also found to have dyslipidemia. PERSONAL HISTORY: Denies smoking or alcohol use. ALLERGIES: NO KNOWN ALLERGIES. REVIEW OF SYSTEMS: 12-point system being reviewed. From neuro, new unsteady gait and diplopia. MEDICATIONS: Aspirin, losartan, Crestor. PHYSICAL EXAMINATION: VITAL SIGNS: Blood pressure 112/62, mean artery pressure of 78, respiratory 18, pulse rate 55, temperature 97.4. NECK: Supple. No carotid bruits. HEART: Regular. CHEST: Fair air entry. EXTREMITIES: No edema in legs. MENTAL STATUS EXAMINATION: He is awake, alert, oriented to person, place and time. Speech is clear. Naming, repetition, fluency, comprehension all within normal. CRANIAL NERVE EXAMINATION: Still, the patient has oblique vision on left lateral gaze which can be corrected on tilting his head to the left. Pupil reactive to light. No facial sensory deficit. No facial asymmetry. Hearing is normal. Tongue is midline. Good gag. MOTOR EXAMINATION: Outstretched hand with eyes closed, no drift noted. Power is symmetric on either side. Deep tendon reflexes biceps, brachialis, triceps 1+, both knees are 1+. Both ankles are absent. Plantars are downgoing. SENSORY EXAMINATION: The patient does not show any cortical sensory loss. Coordination: Finger-nose test is intact. Gait unsteady in his legs on tandem walking. CONCLUSION: As per gathering his medical history, as per neurological examination, the patient does have right fourth nerve dysfunction manifesting with oblique double vision and ataxia consistent with posterior cerebral artery dysfunction. Considering his risk factors, there is probably a small vessel disease. However, large vessel disease should be ruled out. WORKUP: CT of the head reported as negative and CT angiogram which was done in the emergency room reported as no evidence of thromboembolic occlusion in the intracranial arteries and no evidence of stenosis in the carotid arteries. MRI of the brain being reviewed showed right ductal area diffusion-weighted image mismatch and possible right thalamic region as well. EKG normal sinus rhythm. LABORATORY DATA: Blood workup, WBC at 8.1, hemoglobin 15.6, hematocrit 45.1, platelet 228. PT 11.3, INR 1, PTT 30. Sodium 138, potassium 4, chloride 100, bicarbonate 30, BUN 18, creatinine 1, GFR more than 60, glucose 133, calcium 9.4, AST 37, ALT 369, triglyceride 125, cholesterol 165, LDL 108, HDL 40. RECOMMENDATIONS: 1. The patient should have proper blood pressure control and continue statin with dual antiplatelets for now. 2. Cardiology consultation should be warranted and should have event monitor to rule out any paroxysmal atrial fibrillation. The patient should have ocular exercise which has been demonstrated at the bedside. The patient should have sleep studies which can be the another risk factor, could be the cause for his stroke. The patient will be followed closely while he is in the hospital. Dada Ybarra MD
--- NOTE | 2018-04-08 11:26 | VASCLAB ---
Date of service: 04/07/2018 PROCEDURE: Carotid Duplex Exam. HISTORY: CODE STROKE COMPARISON: None available. TECHNIQUE: Grayscale and duplex Doppler evaluation of the cervical carotid and vertebral arteries were performed. The common carotid, carotid bifurcations and cervical Internal Carotid Artery (ICA) and proximal External Carotid Artery (ECA) were evaluated. The vertebral arteries were evaluated for gross patency and flow direction. Report prepared by Vazquez Landon, BS, RVT FINDINGS: RIGHT CAROTID ARTERIES: 1. Common Carotid Artery: No significant focal plaque formation of the right common carotid artery. Maximum Peak Systolic velocity: 100 cm/sec: End-diastolic velocity 27 cm/sec. 2. Carotid Bifurcation: plaque formation. Maximum Peak Systolic velocity: 87 cm/sec: End-diastolic velocity 27 cm/sec. 3. Internal Carotid Artery: Plaque description: 3.1. Proximal Segment: Peak systolic velocity 108 cm/sec: End-diastolic velocity 32 cm/sec - % stenosis 0-15% 3.2. Middle Segment: Peak systolic velocity 78 cm/sec: End-diastolic velocity 32 cm/sec - % stenosis 0-15% 3.3. Distal Segment: Peak systolic velocity 78 cm/sec: End-diastolic velocity 34 cm/sec - % stenosis 0-15% 4. External Carotid Artery: No significant focal plaque formation. Peak systolic velocity 114 cm/sec 5. ICA/CCA Ratio: 1.1 LEFT CAROTID ARTERIES: 1. Common Carotid Artery: No significant focal plaque formation of the left common carotid artery. Maximum Peak Systolic velocity: 87 cm/sec: End-diastolic velocity 26 cm/sec. 2. Carotid Bifurcation: plaque formation. Maximum Peak Systolic velocity: 65 cm/sec: End-diastolic velocity 23 cm/sec. 3. Internal Carotid Artery: Plaque description: 3.1. Proximal Segment: Peak systolic velocity 82 cm/sec: End-diastolic velocity 30 cm/sec - % stenosis 0-15% 3.2. Middle Segment: Peak systolic velocity 93 cm/sec: End-diastolic velocity 38 cm/sec - % stenosis 0-15% 3.3. Distal Segment: Peak systolic velocity 72 cm/sec: End-diastolic velocity 30 cm/sec - % stenosis 0-15% 4. External Carotid Artery: No significant focal plaque formation. Peak systolic velocity 112 cm/sec 5. ICA/CCA Ratio: 1.1 VERTEBRAL ARTERIES: 1. Right Vertebral Artery: The right vertebral artery flow direction is antegrade. 2. Left Vertebral Artery: The left vertebral artery flow direction is antegrade. OTHER FINDINGS: 1. Right Brachial Blood pressure: 110 mmHg. 2. Left Brachial Blood pressure: 112 mmHg. 3. No atherosclerotic calcification present IMPRESSION: RIGHT: Duplex scan does not suggest hemodynamically significant stenosis of the right extracranial carotid arteries. LEFT: Duplex scan does not suggest hemodynamically significant stenosis of the left extracranial carotid arteries.
--- NOTE | 2018-04-08 15:16 | CP.PCM.PN ---
Subjective - Date & Time of Evaluation Date of Evaluation: 04/08/18 Time of Evaluation: 11:00 - Subjective Subjective: clinically same Objective - Vital Signs/Intake and Output Vital Signs (last 24 hours): Temp Pulse Resp BP Pulse Ox 97.9 F 56 L 20 127/80 94 L 04/08/18 08:00 04/08/18 08:00 04/08/18 08:00 04/08/18 08:00 04/08/18 08:00 - Medications Medications: Current Medications Aspirin (Aspirin Chewable) 81 mg PO DAILY [facility] Last Admin: 04/08/18 10:22 Dose: 81 mg Clopidogrel Bisulfate (Plavix) 75 mg PO DAILY [facility] Last Admin: 04/07/18 13:20 Dose: 75 mg Enoxaparin Sodium (Lovenox) 40 mg SC DAILY [facility] Last Admin: 04/07/18 13:20 Dose: 40 mg Losartan Potassium (Cozaar) 25 mg PO DAILY [facility] Last Admin: 04/08/18 10:20 Dose: 25 mg Lutpq-1-Yvsm Ethyl Esters (Lovaza) 1 gm PO BID [facility] Last Admin: 04/08/18 10:27 Dose: 1 gm Rosuvastatin Calcium (Crestor) 10 mg PO HS [facility] Last Admin: 04/07/18 21:50 Dose: 10 mg - Labs Labs: 04/07/18 07:57 04/07/18 07:57 PT 11.3 SECONDS (9.7-12.2) 04/07/18 07:57 INR 1.0 04/07/18 07:57 APTT 30 SECONDS (21-34) 04/07/18 07:57 - Constitutional Appears: Well - Head Exam Head Exam: ATRAUMATIC, NORMAL INSPECTION, NORMOCEPHALIC - Eye Exam Eye Exam: EOMI, Normal appearance, PERRL Pupil Exam: NORMAL ACCOMODATION, PERRL - ENT Exam ENT Exam: Mucous Membranes Moist, Normal Exam - Neck Exam Neck Exam: Full ROM, Normal Inspection. absent: Lymphadenopathy - Respiratory Exam Respiratory Exam: Decreased Breath Sounds - Cardiovascular Exam Cardiovascular Exam: REGULAR RHYTHM, +S1, +S2 - GI/Abdominal Exam GI & Abdominal Exam: Soft, Diminished Bowel Sounds - Rectal Exam Rectal Exam: Deferred
[2018-04-08 16:48] VITALS: O2SAT 97
[2018-04-09 00:53] VITALS: RESP 20
--- NOTE | 2018-04-09 09:36 | PN ---
DATE: 04/09/2018 TIME OF EVALUATION: 7:10 a.m. NEUROLOGICAL PROBLEM: [employer]OUN[employer] stroke at right thalamic and periaqueductal li area. PHYSICAL EXAMINATION: VITAL SIGNS: Blood pressure 102/65, mean artery pressure of 77, respiratory rate 18, pulse rate 58, regular; temperature 97.9. The patient already got up from the bed and sitting comfortably in the chair. His subjective diplopia is gone. On examination, the oblique diplopia on left lateral gaze is also resolved. His gait has improved. His electroencephalogram is also reviewed and no paroxysmal activity. At this time, the patient is neurologically stable, can be discharged, and should have followup with me as outpatient. The patient is advised to continue aspirin and Plavix with angiotensin receptor blockers and statin. The patient definitely needs sleep studies as outpatient to rule out any hidden sleep-related breathing disorder. Dada Ybarra MD
[2018-04-09] MEDS: Omega-3-Acid Ethyl Esters 1 GM Cap PO SCH ×2 (10:31→18:03)
--- NOTE | 2018-04-09 19:31 | CP.PCM.PN ---
Subjective - Date & Time of Evaluation Date of Evaluation: 04/09/18 Time of Evaluation: 09:30 - Subjective Subjective: clinically same Objective - Vital Signs/Intake and Output Vital Signs (last 24 hours): Temp Pulse Resp BP Pulse Ox 97.4 F L 56 L 20 107/66 97 04/09/18 15:00 04/09/18 15:00 04/09/18 15:00 04/09/18 15:00 04/09/18 15:16 - Medications Medications: Current Medications Aspirin (Aspirin Chewable) 81 mg PO DAILY [facility] Last Admin: 04/09/18 10:31 Dose: 81 mg Clopidogrel Bisulfate (Plavix) 75 mg PO DAILY [facility] Last Admin: 04/07/18 13:20 Dose: 75 mg Losartan Potassium (Cozaar) 25 mg PO DAILY [facility] Last Admin: 04/09/18 10:31 Dose: 25 mg Iyhyu-0-Fbiw Ethyl Esters (Lovaza) 1 gm PO BID [facility] Last Admin: 04/09/18 18:03 Dose: 1 gm Rosuvastatin Calcium (Crestor) 10 mg PO HS [facility] Last Admin: 04/08/18 21:50 Dose: 10 mg - Labs Labs: 04/07/18 07:57 04/07/18 07:57 PT 11.3 SECONDS (9.7-12.2) 04/07/18 07:57 INR 1.0 04/07/18 07:57 APTT 30 SECONDS (21-34) 04/07/18 07:57 - Constitutional Appears: Well - Head Exam Head Exam: ATRAUMATIC, NORMAL INSPECTION, NORMOCEPHALIC - Eye Exam Eye Exam: EOMI, Normal appearance, PERRL Pupil Exam: NORMAL ACCOMODATION, PERRL - ENT Exam ENT Exam: Mucous Membranes Moist, Normal Exam - Neck Exam Neck Exam: Full ROM, Normal Inspection. absent: Lymphadenopathy - Respiratory Exam Respiratory Exam: Decreased Breath Sounds - Cardiovascular Exam Cardiovascular Exam: REGULAR RHYTHM, +S1, +S2 - GI/Abdominal Exam GI & Abdominal Exam: Soft, Diminished Bowel Sounds - Rectal Exam Rectal Exam: Deferred
--- NOTE | 2018-04-09 22:12 | CARD ---
APPROVED REPORT Date of service: 04/07/2018 EKG Measurement Heart [id number] <Conclusion> Sinus bradycardia Nonspecific T wave abnormality Abnormal ECG
[2018-04-10 01:47] VITALS: TEMP 97.9
--- NOTE | 2018-04-10 06:24 | CP.PCM.PN ---
Subjective - Date & Time of Evaluation Date of Evaluation: 04/08/18 Time of Evaluation: 17:20 - Subjective Subjective: Patient seen and evaluated Denies chest pain and dyspnea Physical Exam - Constitutional Appears: Well - Head Exam Head Exam: ATRAUMATIC, NORMAL INSPECTION, NORMOCEPHALIC - Eye Exam Eye Exam: EOMI, Normal appearance, PERRL Pupil Exam: NORMAL ACCOMODATION, PERRL - ENT Exam ENT Exam: Mucous Membranes Moist, Normal Exam - Neck Exam Neck exam: Positive for: Normal Inspection - Respiratory Exam Respiratory Exam: Clear to Auscultation Bilateral, NORMAL BREATHING PATTERN - Cardiovascular Exam Cardiovascular Exam: REGULAR RHYTHM, +S1, +S2 - GI/Abdominal Exam GI & Abdominal Exam: Normal Bowel Sounds, Soft. absent: Tenderness - Extremities Exam Extremities exam: Positive for: normal inspection - Back Exam Back exam: NORMAL INSPECTION - Neurological Exam Neurological exam: Alert, CN II-XII Intact, Normal Gait, Oriented x3, Reflexes Normal Additional comments: NIHSS= 0 - Psychiatric Exam Psychiatric exam: Normal Affect, Normal Mood - Skin Skin Exam: Dry, Intact, Normal Color, WarmCC Assessment & Plan - Assessment and Plan (Free Text) Assessment: 58 Male with ischemic CVA HTN CAD s/p stents ECHO: Bubble study negative Event monitoring as out patient Continue Stroke management as per Neurology Will follow Objective - Vital Signs/Intake and Output Vital Signs (last 24 hours): Temp Pulse Resp BP Pulse Ox 97.9 F 60 20 116/72 97 04/09/18 23:40 04/09/18 23:40 04/09/18 23:40 04/09/18 23:40 04/09/18 23:40 Intake and Output: 04/09/18 04/10/18 18:59 06:59 Intake Total 10 Balance 10 - Medications Medications: Current Medications Aspirin (Aspirin Chewable) 81 mg PO DAILY [facility] Last Admin: 04/09/18 10:31 Dose: 81 mg Clopidogrel Bisulfate (Plavix) 75 mg PO DAILY [facility] Last Admin: 04/07/18 13:20 Dose: 75 mg Losartan Potassium (Cozaar) 25 mg PO DAILY [facility] Last Admin: 04/09/18 10:31 Dose: 25 mg Afzir-9-Ovkg Ethyl Esters (Lovaza) 1 gm PO BID [facility] Last Admin: 04/09/18 18:03 Dose: 1 gm Rosuvastatin Calcium (Crestor) 10 mg PO [facility] Last Admin: 04/09/18 21:36 Dose: 10 mg - Labs Labs: 04/07/18 07:57 04/07/18 07:57 PT 11.3 SECONDS (9.7-12.2) 04/07/18 07:57 INR 1.0 04/07/18 07:57 APTT 30 SECONDS (21-34) 04/07/18 07:57
--- NOTE | 2018-04-10 06:25 | CP.PCM.PN ---
Subjective - Date & Time of Evaluation Date of Evaluation: 04/09/18 Time of Evaluation: 15:15 - Subjective Subjective: Patient seen and evaluated Denies chest pain and dyspnea Physical Exam - Constitutional Appears: Well - Head Exam Head Exam: ATRAUMATIC, NORMAL INSPECTION, NORMOCEPHALIC - Eye Exam Eye Exam: EOMI, Normal appearance, PERRL Pupil Exam: NORMAL ACCOMODATION, PERRL - ENT Exam ENT Exam: Mucous Membranes Moist, Normal Exam - Neck Exam Neck exam: Positive for: Normal Inspection - Respiratory Exam Respiratory Exam: Clear to Auscultation Bilateral, NORMAL BREATHING PATTERN - Cardiovascular Exam Cardiovascular Exam: REGULAR RHYTHM, +S1, +S2 - GI/Abdominal Exam GI & Abdominal Exam: Normal Bowel Sounds, Soft. absent: Tenderness - Extremities Exam Extremities exam: Positive for: normal inspection - Back Exam Back exam: NORMAL INSPECTION - Neurological Exam Neurological exam: Alert, CN II-XII Intact, Normal Gait, Oriented x3, Reflexes Normal Additional comments: NIHSS= 0 - Psychiatric Exam Psychiatric exam: Normal Affect, Normal Mood - Skin Skin Exam: Dry, Intact, Normal Color, WarmCC Assessment & Plan - Assessment and Plan (Free Text) Assessment: 58 Male with ischemic CVA HTN CAD s/p stents ECHO: Bubble study negative Event monitoring as out patient Continue Stroke management as per Neurology Will follow Objective - Vital Signs/Intake and Output Vital Signs (last 24 hours): Temp Pulse Resp BP Pulse Ox 97.9 F 60 20 116/72 97 04/09/18 23:40 04/09/18 23:40 04/09/18 23:40 04/09/18 23:40 04/09/18 23:40 Intake and Output: 04/09/18 04/10/18 18:59 06:59 Intake Total 10 Balance 10 - Medications Medications: Current Medications Aspirin (Aspirin Chewable) 81 mg PO DAILY [facility] Last Admin: 04/09/18 10:31 Dose: 81 mg Clopidogrel Bisulfate (Plavix) 75 mg PO DAILY [facility] Last Admin: 04/07/18 13:20 Dose: 75 mg Losartan Potassium (Cozaar) 25 mg PO DAILY [facility] Last Admin: 04/09/18 10:31 Dose: 25 mg Sgsif-2-Dnal Ethyl Esters (Lovaza) 1 gm PO BID [facility] Last Admin: 04/09/18 18:03 Dose: 1 gm Rosuvastatin Calcium (Crestor) 10 mg PO [facility] Last Admin: 04/09/18 21:36 Dose: 10 mg - Labs Labs: 04/07/18 07:57 04/07/18 07:57 PT 11.3 SECONDS (9.7-12.2) 04/07/18 07:57 INR 1.0 04/07/18 07:57 APTT 30 SECONDS (21-34) 04/07/18 07:57
[2018-04-10] MEDS: Omega-3-Acid Ethyl Esters 1 GM Cap PO SCH (10:14)
[2018-04-10 10:16] VITALS: BP 123/73
[2018-04-10 11:22] VITALS: PULSE 68
[2018-04-10] MEDS ORDERED: Pneumococcal 23-Valent Vaccine IM ONE (11:45)
--- NOTE | 2018-04-10 13:13 | PN ---
DATE: 04/10/2018 TIME OF EVALUATION: 6:55 a.m. NEUROLOGICAL PROBLEM: Acute stroke in the mid brain and acute mckeon matter on his right side. This is probably a small vessel disease. PHYSICAL EXAMINATION: GENERAL: The patient is awake, walking around the hallway. Asymptomatic. His symptoms all gone. The patient is stable for more than 48 hours. VITAL SIGNS: Blood pressure 116/72, mean arterial pressure of 86, respiratory rate 18, pulse rate 60 regular, temperature 97.9. The patient is scheduled to have aspirin and Plavix from the day of the admission. However, it was missed for few days, that was resumed yesterday. No need for Lovenox. Continue the present management. The patient can be discharged from a neurological point of view and should have followup visit with me as outpatient. Dada Ybarra MD MTDD
--- NOTE | 2018-04-10 17:38 | CP.PCM.PN ---
Subjective - Date & Time of Evaluation Date of Evaluation: 04/10/18 Time of Evaluation: 11:00 - Subjective Subjective: alert, orientedx3, no dizziness , NAD. Objective - Vital Signs/Intake and Output Vital Signs (last 24 hours): Temp Pulse Resp BP Pulse Ox 97.9 F 68 20 123/73 97 04/09/18 23:40 04/10/18 11:08 04/09/18 23:40 04/10/18 10:16 04/09/18 23:40 Intake and Output: 04/10/18 04/10/18 06:59 18:59 Intake Total 10 200 Balance 10 200 - Labs Labs: 04/07/18 07:57 04/07/18 07:57 PT 11.3 SECONDS (9.7-12.2) 04/07/18 07:57 INR 1.0 04/07/18 07:57 APTT 30 SECONDS (21-34) 04/07/18 07:57 Assessment and Plan - Assessment and Plan (Free Text) Assessment: 58 year old male admitted with dizziness, TIA, seen and examined. Alert and orientedx3, denies sob or chest pains. Cleared by neuro, discussed with DR Heather Romero, plan to discharge home on aspirin, plavix, statin and percy. Advised to follow up with neuro in 1 week.
== END 2018-04-10 12:49 | disposition home or self-care (01) ==
LOC: C.ER 07:40 → C.9E 09:43 → C.6T 10:13
PROVIDERS: ADMIT Internal Medicine Nephrology; ATTEND Internal Medicine Nephrology
DX: I63.81 Other cerebral infarction due to occlusion or stenosis of small artery (principal); I48.91 Unspecified atrial fibrillation; I10 Essential (primary) hypertension; E78.5 Hyperlipidemia, unspecified; I25.10 Atherosclerotic heart disease of native coronary artery without angina pectoris; Z79.82 Long term (current) use of aspirin; Z95.5 Presence of coronary angioplasty implant and graft; Z91.81 History of falling
CPT/HCPCS: 70450; 70496; 70498; 70551; 71045; 80053; 80061; 82948; 83036; 84484; 85025; 85610; 85730; 86850; 86900; 90471; 90732; 93005; 93306; 93880; 95812; 96372; 97116; 97161; 97165; 97530; 99285; G0378; G8978; G8979; G8980; G8987; G8988; G8989; J1650; Q9966